=== PATIENT | female | born 1985 | race American Indian/Alaskan Native ===

== ENCOUNTER 2017-03-27 13:06 | Outpatient (CLI) | payer MEDICAID | END 2017-03-27 15:49 | disposition home or self-care (01) | LOC: LAB 13:06 → TRG 15:08 → LAB 15:49 | PROVIDERS: ATTEND Advanced Practice Midwife | DX: Z31.82 Encounter for Rh incompatibility status (principal); O36.0130 Maternal care for anti-D [Rh] antibodies, third trimester, not applicable or unspecified; Z3A.29 29 weeks gestation of pregnancy | CPT/HCPCS: 86850; 86900; 86901; 96372; J2790 ==

== ENCOUNTER 2017-06-12 10:01 | Inpatient (IN) | payer MEDICAID ==
--- NOTE | 2017-06-12 11:16 | History and Physical Report ---
History of Present Illness Date of examination: 06/12/17 Date of admission: 06/12/17 10:02 Chief complaint: Contractions since 06:30 this morning. History of present illness: 31 year old comes in complaining of contractions since 06:30 this morning. Patient denies vaginal bleeding or leaking of fluid. Patient reports active movement. Past History Past Medical History: no pertinent history Past Surgical History: no surgical history [employer] History: trichomonas (treated twice during this ; no VIDHYA on chart ; pt. states no IC since last treatment) Family/Genetic History: diabetes, heart disease, hypertension, other (stroke, kidney disease, DVT (pt's. mother)) Social history: no significant social history - Obstetrical History Expected Date of Delivery: 06/08/17 Actual Gestation: 40 Week(s) 4 Day(s) : 7 Para: 4 Hx # Term Pregnancies: 5 Number of Pregnancies: 0 Spontaneous Abortions: 2 Induced : 0 Number of Living Children: 4 Medications and Allergies Allergies Allergy/AdvReac Type Severity Reaction Status Date / Time cat dander Allergy Mild Itching Verified 06/12/17 10:26 dog dander Allergy Mild Itching Verified 06/12/17 10:26 Home Medications Medication Instructions Recorded Confirmed Last Taken Type No Known Home Medications [No 02/22/15 04/19/15 Unknown History Reported Home Medications] Active Meds: Active Medications Ephedrine Sulfate (Ephedrine Sulfate) 10 mg IV Q2M PRN PRN Reason: Hypotension Stop: 06/12/17 11:09 Fentanyl (Sublimaze) 100 mcg IV Q2H PRN PRN Reason: Labor Pain Lactated Ringer's (Lactated Ringers) 1,000 mls @ 999 mls/hr IV BOLUS ONE Stop: 06/12/17 11:54 Ampicillin Sodium (Polycillin/Ns 2 Gm/100 Ml) 2 gm in 100 mls @ 100 mls/hr IV ONCE ONE PRN Reason: Protocol Stop: 06/12/17 12:03 Lactated Ringer's (Lactated Ringers) 1,000 mls @ 125 mls/hr IV DIRECT KVNG Oxytocin/Sodium Chloride (Pitocin/Ns 20 Unit/1000ml Drip) 20 units in 1,000 mls @ 125 mls/hr IV DIRECT KVNG Ampicillin Sodium (Polycillin/Ns 1 Gm/50 Ml) 1 gm in 50 mls @ 100 mls/hr IV Q4HR KVNG PRN Reason: Protocol Influenza Virus Vaccine Quadrival (Fluarix Quad 1235-4590(36 Mos+)) 0.5 ml IM .ONCE ONE Stop: 06/12/17 11:10 Terbutaline Sulfate (Brethine) 0.25 mg SUB-Q ONCE PRN PRN Reason: Hyperstimulation/Hypertonicity Stop: 06/12/17 11:05 Review of Systems All systems: negative (regular contractions since 06:30 this morning) - Vital Signs Vital signs: Vital Signs BP 146/126 06/12/17 10:29 Temp Pulse Resp BP Pulse Ox 97.3 F L 72 18 117/71 99 06/12/17 11:01 06/12/17 11:13 06/12/17 11:01 06/12/17 11:03 06/12/17 11:13 - Physical Exam Abdomen: Positive: normal appearance, soft. Negative: distention, tenderness, guarding, rigidity Genitourinary (Female): Positive: normal external genitalia. Negative: perineal /vulvar lesions (no lesions seen on careful exam with bright light on admission) Vulva: both: normal Vagina: Positive: normal moisture Uterus: Positive: enlarged. Negative: tender Extremities: Positive: normal. Negative: tenderness, edema - Obstetrical FHR: category 2 Uterine Contraction Monitor Mode: External Cervical Dilatation: 5 Cervical Effacement Percentage: 80 station: -2 Uterine Contraction Pattern: Regular Uterine Contraction Intensity: Moderate Results All other labs normal. Assessment and Plan A: at 40 weeks, 4 days gestation. Active labor. GBS positive. P: Admit. GBS prophylaxis. Anticipate .
[2017-06-12] MEDS ORDERED: POLYCILLIN/NS 2 GM/100 ML 2 GM/100 ML BAG IV ONE (12:00)
[2017-06-12] MEDS ORDERED: SUBLIMAZE IV PRN (12:00)
[2017-06-12] MEDS ORDERED: LACTATED RINGERS 1,000 ML IV SCH (12:00)
[2017-06-12] MEDS ORDERED: LACTATED RINGERS 1,000 ML IV ONE (12:00)
[2017-06-12] MEDS ORDERED: PITOCin/NS 20 UNIT/1000ML DRIP 20 UNITS/1,000 ML BAG IV SCH (12:00)
[2017-06-12 12:07] LABS: Basophils % (Auto) 0.3 % (0.0-1.8); Hematocrit 33.2 % (30.3-42.9); Hemoglobin 11.4 gm/dl (10.1-14.3); Mean Corpuscular HGB Conc 34 % (30-34); Mean Corpuscular Hemoglobin 31 pg (28-32); Mean Corpuscular Volume 89 fl (79-97); Platelet Count 143 K/mm3 (140-440); Red Blood Count 3.75 M/mm3 (3.65-5.03); Red Cell Distribution Width 14.3 % (13.2-15.2)
[2017-06-12] MEDS ORDERED: ePHEDrine SULFATE IV PRN (12:30)
--- NOTE | 2017-06-12 12:56 | Anesthesia Consultation ---
Anesthesia Consult and Med Hx Date of service: 06/12/17 - Airway Anesthetic Teeth Evaluation: Good ROM Head & Neck: Adequate Mental/Hyoid Distance: Adequate - Pre-Operative Health Status ASA Pre-Surgery Classification: ASA2, Emergency Proposed Anesthetic Plan: Epidural, Spinal - Pulmonary Hx Asthma: No COPD: No Hx Pneumonia: No - Cardiovascular System Hx Hypertension: No - Central Nervous System Hx Seizures: No Hx Psychiatric Problems: No - Endocrine Hx Renal Disease: No Hx End Stage Renal Disease: No Hx Hypothyroidism: No Hx Hyperthyroidism: No - Hematic Hx Anemia: Yes Hx Sickle Cell Disease: No - Other Systems Hx Alcohol Use: No
[2017-06-12] MEDS ORDERED: NARCAN 2 MG/2 ML IV PRN (12:57)
[2017-06-12] MEDS ORDERED: BRETHINE SUB-Q PRN (13:00)
[2017-06-12] MEDS ORDERED: fentaNYL-BUPIV 2 MCG/ML-0.125% 200 MCG/100 ML BAG EPIDURAL SCH (13:00)
[2017-06-12] MEDS ORDERED: LANSINOH TP PRN (14:59)
[2017-06-12] MEDS ORDERED: NORCO 5/325 PO PRN (14:59)
[2017-06-12] MEDS ORDERED: TUCKS PAD TP PRN (14:59)
[2017-06-12] MEDS ORDERED: SODIUM CHLORIDE FLUSH SYRINGE 10 ML IV NR (15:00)
--- NOTE | 2017-06-12 15:08 | Procedure Note ---
OB Delivery Note - Vaginal Delivery presentation: vertex Delivery position: OA Intrapartum events: shoulder dystocia (Brief shoulder dystocia resolved with rotation of shoulders to oblique and delivery of posterior shoulder) Delivery induction: none Delivery monitor: external FHT, external uterine Route of delivery: Delivery placenta: spontaneous Delivery cord: 3 umbilical vessels Episiotomy: none Delivery laceration: none Anesthesia: epidural Delivery comments: Spontaneous vaginal delivery of liveborn male weighing 7 lbs. 14 oz. over intact perineum with apgars of 8/9. Brief shoulder dystocia resolved with rotation of shoulders to the oblique and delivery of posterior shoulder. Baby placed immediately on maternal chest after . Spontaneous cry and respirations. 3 vessel cord double clamped and cut after cessation of pulsation. Cord blood obtained. Spontaneous delivery of intact placenta and membranes by kitchen mechanism. EBL 250 ml. Pitocin to IV fluids after delivery of placenta. Fundus firm and midline. No lacerations noted. Sponge count correct. Mother and baby stable in birthing room.
[2017-06-12] MEDS ORDERED: POLYCILLIN/NS 1 GM/50 ML 1 GM/50 ML BAG IV SCH (16:00)
[2017-06-12] MEDS ORDERED: PITOCin/NS 20 UNIT/1000ML DRIP 20,000 MILLIUNITS/1,000 ML BAG IV ONE (16:03)
[2017-06-12] MEDS: MOTRIN PO SCH (18:30)
[2017-06-13 05:30] LABS: Hematocrit 31.5 % (30.3-42.9); Hemoglobin 10.5 gm/dl (10.1-14.3)
[2017-06-13] MEDS: MOTRIN PO SCH ×3 (06:27→18:01)
[2017-06-13] MEDS ORDERED: BOOSTRIX IM ONE (08:00)
--- NOTE | 2017-06-13 10:30 | Progress Note ---
Assessment and Plan A: day 1 S/P spontaneous vaginal delivery. P: Anticipate discharge tomorrow afternoon. Subjective - Subjective Date of service: 06/13/17 Principal diagnosis: day 1 S/P spontaneous vaginal delivery Interval history: day 1. Doing well. Patient reports small amount of lochia and no clots. Patient is voiding without difficulty, tolerating a regular diet without nausea or vomiting, and ambulating well. Patient denies headache, visual disturbance, chest pain, shortness of breath, cough, abdominal pain, nausea or vomiting, leg pain, urinary symptoms, symptoms of depression or any other problems. Patient is considering Depo Provera for control tomorrow at hospital discharge. Patient reports: appetite normal, voiding normally, pain well controlled, ambulating normally : doing well Objective - Vital Signs Latest vital signs: Vital Signs Temp Pulse Resp BP BP Pulse Ox 06/13/17 08:34 98.4 F 64 20 92/49 99 06/13/17 06:27 18 06/13/17 00:50 98.2 F 66 20 102/61 06/12/17 21:11 18 06/12/17 20:25 97.8 F 67 20 98/55 06/12/17 16:10 97.7 F 56 L 20 90/60 06/12/17 15:48 51 L 127/72 06/12/17 15:34 57 L 114/60 06/12/17 14:49 47 L 117/66 06/12/17 14:35 55 L 106/59 06/12/17 14:19 59 L 124/69 06/12/17 14:03 52 L 97/51 06/12/17 13:57 48 L 113/62 06/12/17 13:53 56 L 104/59 06/12/17 13:49 54 L 115/71 100 06/12/17 13:44 56 L 100 06/12/17 13:42 53 L 109/60 06/12/17 13:39 78 100 06/12/17 13:38 54 L 100/58 06/12/17 13:34 96.5 F L 61 18 99 06/12/17 13:32 48 L 122/75 06/12/17 13:29 54 L 100 06/12/17 13:27 54 L 121/76 06/12/17 13:24 49 L 100 06/12/17 13:22 57 L 113/69 06/12/17 13:20 53 L 100 06/12/17 13:18 76 112/74 06/12/17 13:14 66 100 06/12/17 13:13 81 102/57 06/12/17 13:10 75 111/55 06/12/17 13:09 86 98 06/12/17 13:04 56 L 98 06/12/17 13:02 51 L 107/59 06/12/17 13:01 53 L 103/58 06/12/17 13:00 49 L 100 06/12/17 12:59 55 L 112/63 06/12/17 12:57 49 L 108/59 06/12/17 12:55 88 114/63 06/12/17 12:54 93 H 99 06/12/17 12:53 52 L 108/63 06/12/17 12:51 73 105/66 06/12/17 12:49 58 L 108/66 99 06/12/17 12:47 54 L 99/67 06/12/17 12:45 54 L 99/61 06/12/17 12:44 54 L 100 06/12/17 12:42 66 L 06/12/17 12:39 59 L 109/67 100 06/12/17 12:34 64 124/77 83 L 06/12/17 12:29 65 100 06/12/17 12:24 57 L 100 06/12/17 12:19 54 L 114/65 100 06/12/17 12:13 53 L 100 06/12/17 12:08 56 L 100 06/12/17 12:03 69 98 06/12/17 12:02 52 L 117/62 06/12/17 11:58 58 L 96 06/12/17 11:53 58 L 98 06/12/17 11:49 62 112/61 06/12/17 11:48 70 98 06/12/17 11:43 94 H 99 06/12/17 11:38 81 100 06/12/17 11:33 57 L 112/77 99 06/12/17 11:28 56 L 100 06/12/17 11:23 56 L 100 06/12/17 11:19 56 L 111/73 06/12/17 11:18 55 L 100 06/12/17 11:13 72 99 09/29/17 11:08 54 L 100 06/12/17 11:03 53 L 117/71 06/12/17 11:01 97.3 F L 18 06/12/17 10:29 146/126 Intake and Output 06/12/17 06/13/17 06/13/17 22:59 06:59 14:59 Intake Total 480 480 Output Total 600 900 600 Balance -120 -420 -600 Intake: Oral 480 480 Output: Urine 600 900 600 Void 600 900 600 Other: Total, Intake Amount 240 240 Total, Output Amount 600 400 600 Estimated Blood Loss 250 - Exam Breasts: Present: deferred Cardiovascular: Present: Regular rate, No murmurs Lungs: Present: Clear to auscultation Abdomen: Present: normal appearance, soft. Absent: distention, tenderness, guarding Uterus: Present: normal, firm, fundal height below umbilicus. Absent: bogginess , tenderness Extremities: Present: normal. Absent: tenderness, edema - Labs Labs: Abnormal lab results 06/12/17 Range/Units 11:30 Dawson % (Auto) 9.8 H (0.0-7.3) %
[2017-06-13] MEDS: FEOSOL PO SCH (11:11)
[2017-06-13] MEDS ORDERED: Fluarix Quad 2017-2018(36 MOS+) IM ONE (12:00)
[2017-06-14] MEDS: MOTRIN PO SCH ×2 (00:01→05:07)
[2017-06-14] MEDS ORDERED: BOOSTRIX IM ONE (06:00)
[2017-06-14] MEDS ORDERED: DEPO-PROVERA (CONTRACEPTION) IM ONE (11:55)
[2017-06-14] MEDS ORDERED: Fluarix Quad 2017-2018(36 MOS+) IM ONE (12:00)
--- NOTE | 2017-06-14 12:00 | Progress Note ---
Assessment and Plan A: day 2. Anemia. P: Discharge patient home today. Patient is to receive Depo Provera contraceptive injection prior to discharge. Advised patient to continue vitamins and iron supplements at home. Discussed discharge instructions and warning signs with patient. Advised patient to avoid IC, heavy lifting, heavy housework for 6 weeks and to avoid driving for 1 month. Advised patient to follow up at [facility] in 6 weeks for exam. Patient voiced understanding of all of the above discharge instructions. Subjective - Subjective Date of service: 06/14/17 Principal diagnosis: day 2 S/P spontaneous vaginal delivery Interval history: day 2. Doing well. Patient reports small amount of lochia and no clots. Patient is voiding without difficulty, tolerating a regular diet without nausea or vomiting, and ambulating well. Patient denies headache, visual disturbance, chest pain, shortness of breath, cough, abdominal pain, nausea or vomiting, leg pain, urinary symptoms, symptoms of depression or any other problems. Patient requests Depo Provera contraceptive injection today before hospital discharge. Patient reports: appetite normal, voiding normally, pain well controlled, ambulating normally [place]: doing well Objective - Vital Signs Latest vital signs: Vital Signs Temp Pulse Resp BP BP Pulse Ox 06/14/17 08:20 97.9 F 70 20 104/57 06/14/17 01:00 98.0 F 67 20 108/68 06/13/17 16:54 98.2 F 71 18 100/54 98 Intake and Output 06/13/17 06/14/17 06/14/17 22:59 06:59 14:59 Intake Total 240 240 240 Balance 240 240 240 Intake: Oral 240 240 240 Other: Total, Intake Amount 240 240 240 # Voids Void 1 1 1 - Exam Breasts: Present: deferred Cardiovascular: Present: Regular rate, No murmurs Lungs: Present: Clear to auscultation Abdomen: Present: normal appearance, soft. Absent: tenderness, guarding, rigidity Uterus: Present: normal, firm, fundal height below umbilicus Extremities: Present: normal. Absent: edema
--- NOTE | 2017-06-14 12:02 | Discharge Summary ---
Providers - Providers Date of Admission: 06/12/17 10:02 Date of discharge: 06/14/17 Attending physician: Dr. Rick Martinez None Primary care physician: COLLEEN MERCER MD Hospitalization Reason for admission: active labor Delivery: Episiotomy: none Laceration: none Other procedures: none complications: none Discharge diagnosis: IUP at term delivered baby: male Pertinent studies: Labs Hospital course: Normal hospital course. Condition at discharge: Good Disposition: DC-01 TO HOME OR SELFCARE Plan - Provider Discharge Summary Activity: routine, no sex for 6 weeks, no heavy lifting 4 weeks, no strenuous exercise Diet: routine Instructions: routine Additional instructions: Call your doctor immediately for: * Fever > 100.5 * Heavy vaginal bleeding ( >1 pad per hour) * Severe persistent headache * Shortness of breath * Reddened, hot, painful area to leg or breast - Follow up plan Follow up: COLLEEN MERCER MD [Primary Care Provider] - 6 Weeks
[2017-06-14] MEDS: FEOSOL PO SCH (12:24)
[2017-06-14 18:30] VITALS: BP 109/61
== END 2017-06-14 16:00 | disposition home or self-care (01) | DRG 775 ==
LOC: TRG 10:01 → LD 10:02 → TRG 10:02 → OB 15:51
PROVIDERS: ADMIT Obstetrics & Gynecology; ATTEND Obstetrics & Gynecology
PROC: 10E0XZZ Delivery of Products of Conception, External Approach (ICD-10-PCS; principal; 2017-06-12)
PROC: 3E0S3BZ Introduction of Anesthetic Agent into Epidural Space, Percutaneous Approach (ICD-10-PCS; 2017-06-12)
PROC: 00HU33Z Insertion of Infusion Device into Spinal Canal, Percutaneous Approach (ICD-10-PCS; 2017-06-12)
PROC: 3E0334Z Introduction of Serum, Toxoid and Vaccine into Peripheral Vein, Percutaneous Approach (ICD-10-PCS; 2017-06-13)
DX: O99.824 Streptococcus B carrier state complicating childbirth (principal); O66.0 Obstructed labor due to shoulder dystocia; Z3A.40 40 weeks gestation of pregnancy; Z37.0 Single live birth; O90.81 Anemia of the puerperium; D64.9 Anemia, unspecified; Z91.09 Other allergy status, other than to drugs and biological substances
CPT/HCPCS: 36415; 85014; 85018; 85025; 85027; 85461; 86850; 86900; 86901; 90471; 90686; 90715; J0290; J1050; J2590; J2790; J3010; J7120